=== PATIENT | male | born 1985 | race Caucasian/White ===

== ENCOUNTER → 2023-06-01 | Outpatient (CLI) | payer OTHER ==
[2023-06-01 15:44] LABS: HEMATOCRIT 42.6 % (42.0-52.0); HEMOGLOBIN 14.3 g/dl (13.5-17.5); MEAN CORPUSCULAR HEMOGLOBIN 29.5 pg (27.0-33.0); MEAN CORPUSCULAR HGB CONC 33.6 g/dl (32.0-36.5); MEAN CORPUSCULAR VOLUME 87.8 fl (80.0-96.0); RED BLOOD COUNT 4.85 10^6/uL (4.30-6.10)
== END ==
LOC: M PLALAB 14:14
PROVIDERS: ATTEND Urology
DX: D69.6 Thrombocytopenia, unspecified (principal)

== ENCOUNTER → 2023-06-12 | Outpatient (REF) | payer OTHER | LOC: M LAB REF 16:02 | PROVIDERS: ATTEND Surgery | DX: L72.3 Sebaceous cyst (principal) ==

== ENCOUNTER → 2023-08-09 | Outpatient (CLI) | payer OTHER ==
[~2023-08-09] MED LIST: ELIQ5TAB PO; EQL50TAB2 PO; HALO0.052; PROBCAP14 PO; PROHANCE 279.3MG/ML 15ML VIAL As Ordered ONE; SERT50TA29 PO; THERTAB52 PO; UREA20CR4
== END ==
LOC: M RAD 15:44
PROVIDERS: ATTEND Internal Medicine Gastroenterology
DX: I81 Portal vein thrombosis (principal)

== ENCOUNTER → 2023-08-14 | Outpatient (CLI) | payer OTHER ==
[~2023-08-14] MED LIST changes: -PROHANCE 279.3MG/ML 15ML VIAL As Ordered ONE
[2023-08-14 17:46] LABS: BASO % 0.4 % (0.0-1.0); EOS % 0.5 % (0.0-3.0); HEMATOCRIT 42.3 % (42.0-52.0); HEMOGLOBIN 14.5 g/dl (13.5-17.5); LYMPH # 1.7 10^3/uL (1.5-5.0); LYMPH % 31.2 % (24.0-44.0); MEAN CORPUSCULAR HEMOGLOBIN 29.8 pg (27.0-33.0); MEAN CORPUSCULAR HGB CONC 34.3 g/dl (32.0-36.5); MONO # 0.3 10^3/uL (0.0-0.8); MONO % 5.3 % (2.0-8.0); NEUTROPHILS # 3.4 10^3/uL (1.5-8.5); NEUTROPHILS % 62.4 % (36.0-66.0); RED BLOOD COUNT 4.86 10^6/uL (4.30-6.10); WHITE BLOOD COUNT 5.5 10^3/uL (4.0-10.0)
== END ==
LOC: M LAB 16:58
PROVIDERS: ATTEND Internal Medicine Hematology
DX: D69.6 Thrombocytopenia, unspecified (principal)

== ENCOUNTER → 2023-08-16 | Outpatient (REF) | payer OTHER | LOC: M LAB 09:10 | PROVIDERS: ATTEND Internal Medicine Hematology | DX: I81 Portal vein thrombosis (principal) ==

== ENCOUNTER → 2023-09-06 | Outpatient (CLI) | payer OTHER ==
[2023-09-06 17:11] LABS: BASO % 0.3 % (0.0-1.0); EOS % 0.7 % (0.0-3.0); HEMATOCRIT 40.5 % (42.0-52.0); HEMOGLOBIN 14.5 g/dl (13.5-17.5); LYMPH # 1.8 10^3/uL (1.5-5.0); MEAN CORPUSCULAR HEMOGLOBIN 30.6 pg (27.0-33.0); MEAN CORPUSCULAR HGB CONC 35.8 g/dl (32.0-36.5); MEAN CORPUSCULAR VOLUME 85.4 fl (80.0-96.0); MONO # 0.3 10^3/uL (0.0-0.8); MONO % 5.7 % (2.0-8.0); NEUTROPHILS # 3.8 10^3/uL (1.5-8.5); RED BLOOD COUNT 4.74 10^6/uL (4.30-6.10)
== END ==
LOC: M LAB 16:50
PROVIDERS: ATTEND Internal Medicine Hematology
DX: D69.6 Thrombocytopenia, unspecified (principal)

== ENCOUNTER 2023-09-20 07:01 | Day surgery (SDC) | payer OTHER ==
[~2023-09-20] VITALS: Ht 177.8 cm; Wt 90.7 kg
[~2023-09-20 07:01] MED LIST changes: -HALO0.052; +HALO0.052 TOP; -UREA20CR4; +UREA20CR4 TOP
[2023-09-20] MEDS ORDERED: propofoL 200 MG/20 ML VIAL As Ordered ONE (07:43)
[2023-09-20] MEDS ORDERED: ONDANSETRON 4MG 2ML VIAL As Ordered ONE (07:43)
[2023-09-20] MEDS ORDERED: LIDOCAINE 2% 100MG/5ML SDV (FOR ANES.) As Ordered ONE (07:43)
[2023-09-20] MEDS ORDERED: MIDAZOLAM INJ 2MG/2ML VIAL As Ordered ONE (07:49)
[2023-09-20] MEDS ORDERED: fentaNYL 100 MCG/2 ML INJECTION As Ordered ONE (07:49)
[2023-09-20] MEDS: LR 1,000 ML IV SCH (08:01)
[2023-09-20] MEDS ORDERED: BACITRACIN OINTMENT 30GM TUBE As Ordered ONE (08:44)
[2023-09-20] MEDS: ceFAZolin SOD 2 GM in IV 1 EA IV ONE (09:05)
[2023-09-20] MEDS ORDERED: ACETAMINOPHEN 1000MG 100ML IV BAG As Ordered ONE (09:07)
[2023-09-20] MEDS: LIDOCAINE 1% SDV 30ML VIAL As Ordered ONE (09:20)
[2023-09-20] MEDS ORDERED: GLYCOPYRROLATE INJ 0.2 MG/ML 2 ML VIAL As Ordered ONE (09:23)
[2023-09-20] MEDS ORDERED: ePHEDrine SULFATE 25 MG/5 ML(5MG/ML) SYRINGE As Ordered ONE (09:46)
[2023-09-20] MEDS ORDERED: LR 1,000 ML IV SCH (09:55)
[2023-09-20] MEDS ORDERED: oxyCODONE 5MG TAB PO PRN (09:55)
[2023-09-20] MEDS ORDERED: ONDANSETRON 4MG 2ML VIAL IV PRN (09:55)
[2023-09-20] MEDS ORDERED: fentaNYL 100 MCG/2 ML INJECTION IV PRN (09:55)
[2023-09-20] MEDS ORDERED: HYDROMORPHONE HCL 0.5 MG/ 0.5 ML SYRINGE IV PRN (09:55)
[2023-09-20] MEDS ORDERED: HYDR-3713 PO (10:01)
[2023-09-20] MEDS ORDERED: CEPH500C PO (10:01)
[2023-09-20 11:00] VITALS: BP 136/76; TEMP 97.3; O2SAT 100
== END 2023-09-20 11:09 | disposition home or self-care (01) ==
LOC: M SDC 07:01
PROVIDERS: ATTEND Urology
DX: N47.1 Phimosis (principal); L72.9 Follicular cyst of the skin and subcutaneous tissue, unspecified; N49.2 Inflammatory disorders of scrotum; I99.9 Unspecified disorder of circulatory system; I82.0 Budd-Chiari syndrome; F41.9 Anxiety disorder, unspecified; Z79.899 Other long term (current) drug therapy; Z79.01 Long term (current) use of anticoagulants; F17.290 Nicotine dependence, other tobacco product, uncomplicated; Z91.048 Other nonmedicinal substance allergy status
CPT/HCPCS: 11426; 54161; 87070; 87075; 87076; 87205; 88304; 88305; J0131; J0665; J0690; J1100; J2250; J2405; J3010

== ENCOUNTER → 2023-11-06 | Outpatient (CLI) | payer OTHER ==
[~2023-11-06] MED LIST changes: +CEPH500C PO; +HYDR-3713 PO
[2023-11-06 07:59] LABS: BASO % 0.6 % (0.0-1.0); EOS % 0.9 % (0.0-3.0); HEMATOCRIT 43.3 % (42.0-52.0); HEMOGLOBIN 14.8 g/dl (13.5-17.5); LYMPH # 1.3 10^3/uL (1.5-5.0); LYMPH % 38.2 % (24.0-44.0); MEAN CORPUSCULAR HEMOGLOBIN 30.3 pg (27.0-33.0); MEAN CORPUSCULAR HGB CONC 34.2 g/dl (32.0-36.5); MEAN CORPUSCULAR VOLUME 88.5 fl (80.0-96.0); MONO # 0.4 10^3/uL (0.0-0.8); MONO % 11.6 % (2.0-8.0); NEUTROPHILS # 1.6 10^3/uL (1.5-8.5); NEUTROPHILS % 48.4 % (36.0-66.0); RED BLOOD COUNT 4.89 10^6/uL (4.30-6.10); WHITE BLOOD COUNT 3.4 10^3/uL (4.0-10.0)
[2023-11-06 08:26] LABS: ALBUMIN 4.2 G/DL (3.2-5.2); ALKALINE PHOSPHATASE 63 U/L (46-116); ALT/SGPT 31 U/L (7.0-40); AST/SGOT 17 U/L (<34); BILIRUBIN,TOTAL 0.5 MG/DL (0.3-1.2); BLOOD UREA NITROGEN 11 MG/DL (9-23); CARBON DIOXIDE LEVEL 29 MMOL/L (20-31); CHLORIDE LEVEL 108 MMOL/L (98-107); CREATININE FOR GFR 0.74 MG/DL (0.70-1.30); GLOMERULAR FILTRATION RATE > 60.0 (>60); GLUCOSE, FASTING 102 MG/DL (60-100); POTASSIUM SERUM 4.3 MMOL/L (3.5-5.1); SODIUM LEVEL 141 MMOL/L (136-145); TOTAL PROTEIN 7.1 G/DL (5.7-8.2)
== END ==
LOC: M LAB 07:07
PROVIDERS: ATTEND Internal Medicine Hematology
DX: D69.6 Thrombocytopenia, unspecified (principal); I81 Portal vein thrombosis

== ENCOUNTER → 2023-12-22 | Outpatient (CLI) | payer OTHER | LOC: M LAB 15:02 | PROVIDERS: ATTEND Internal Medicine Hematology | DX: I81 Portal vein thrombosis (principal) ==

== ENCOUNTER → 2024-05-05 | Outpatient (CLI) | payer OTHER ==
[~2024-05-05] MED LIST changes: -HALO0.052 TOP; +HALO0.056 TOP
[2024-05-05 11:14] LABS: HEMATOCRIT 42.1 % (42.0-52.0); HEMOGLOBIN 14.5 g/dl (13.5-17.5); MEAN CORPUSCULAR HEMOGLOBIN 30.2 pg (27.0-33.0); MEAN CORPUSCULAR HGB CONC 34.4 g/dl (32.0-36.5); MEAN CORPUSCULAR VOLUME 87.7 fl (80.0-96.0); WHITE BLOOD COUNT 5.2 10^3/uL (4.0-10.0)
== END ==
LOC: M LRY 07:23
PROVIDERS: ATTEND Physician Assistant Medical
DX: R19.4 Change in bowel habit (principal); D69.6 Thrombocytopenia, unspecified

== ENCOUNTER 2024-06-02 06:57 | Day surgery (SDC) | payer OTHER ==
[~2024-06-02] VITALS: Ht 177.8 cm; Wt 95.1 kg
[~2024-06-02 06:57] MED LIST changes: +NAPR220C14 PO; +QC F0.52 PO; +ZOLO100T PO
[2024-06-02] MEDS ORDERED: LIDOCAINE 2% 100MG/5ML SDV (FOR ANES.) As Ordered ONE (09:31)
[2024-06-02] MEDS ORDERED: propofoL 200 MG/20 ML VIAL As Ordered ONE (09:31)
[2024-06-02 10:22] VITALS: BP 124/78; O2SAT 100
== END 2024-06-02 10:28 | disposition home or self-care (01) ==
LOC: M OPP 06:57
PROVIDERS: ATTEND Internal Medicine Gastroenterology
DX: Z12.11 Encounter for screening for malignant neoplasm of colon (principal); K63.5 Polyp of colon; R12 Heartburn; R19.4 Change in bowel habit; K64.8 Other hemorrhoids; F17.200 Nicotine dependence, unspecified, uncomplicated; Z79.899 Other long term (current) drug therapy; Z88.8 Allergy status to other drugs, medicaments and biological substances; Z91.048 Other nonmedicinal substance allergy status

== ENCOUNTER → 2025-03-18 | Outpatient (CLI) | payer OTHER ==
[~2025-03-18] MED LIST changes: -EQL50TAB2 PO; +PROHANCE 279.3MG/ML 15ML VIAL As Ordered ONE; +PROHANCE 279.3MG/ML 5ML VIAL As Ordered ONE; +VITA1TAB82 PO
== END ==
LOC: M RAD 10:22
PROVIDERS: ATTEND Physician Assistant Medical
DX: I81 Portal vein thrombosis (principal)
CPT/HCPCS: 74185; A9576